=== PATIENT | female | born 2000 | race Caucasian/White ===

== ENCOUNTER 2021-02-03 22:01 | Emergency (ER) | payer OTHER ==
[2021-02-03 23:37] LABS: HEMOGLOBIN 12.7 gm/dl (12.3-15.3); RED BLOOD COUNT 4.35 M/UL (4.00-5.10)
[2021-02-03 23:57] LABS: BUN/CREATININE RATIO 13 (0-10)
[2021-02-04] MEDS ORDERED: FLOMAX 0.4 MG0.4 MG PO (01:28)
[2021-02-04] MEDS ORDERED: ZOFRAN ODT 4 MG4 MG PO (01:28)
[2021-02-04] MEDS ORDERED: TORADOL 10 MG T10 MG PO (01:28)
== END 2021-02-04 01:49 | disposition home or self-care (01) ==
LOC: ER1 22:01
PROVIDERS: Physician Assistant
DX: N13.2 Hydronephrosis with renal and ureteral calculous obstruction (principal)
CPT/HCPCS: 80053; 81001; 83690; 84703; 85025; 96374; 96375; 99284; J1885; J2405

== ENCOUNTER → 2021-02-20 | Outpatient (CLI) | payer OTHER ==
[~2021-02-20] MED LIST: FLOMAX 0.4 MG0.4 MG PO; TORADOL 10 MG T10 MG PO; ZOFRAN ODT 4 MG4 MG PO
== END ==
LOC: EXRD 09:51
DX: N20.0 Calculus of kidney (principal)
CPT/HCPCS: 74018